=== PATIENT | female | born 1955 | race Caucasian/White ===

== ENCOUNTER 2024-08-06 23:14 | Emergency (ER) | payer OTHER, SELFPAY ==
[2024-08-06 23:17] VITALS: BP 176/83; PULSE 74; RESP 18; TEMP 36.8; O2SAT 97; BMI 34.9
--- NOTE | 2024-08-07 00:14 | CT_ITS ---
EXAM: CT brain without IV contrast CLINICAL HISTORY: Dizziness, headache, hypertension. COMPARISON: None. TECHNIQUE: Multiple, axial CT images of the brain are obtained without intravenous contrast. Coronal and sagittal 2D reformatted images are provided for better evaluation. Dose reduction technique was used. FINDINGS: There is prominence of the ventricles and sulci indicative of atrophy. No midline shift, mass effect, or extra-axial fluid collections are identified. No acute intracranial hemorrhage, mass, or acute territorial infarction is present per CT criteria. Walters-white junction is preserved. There is flattening of the pituitary gland relating to an empty sella. Calvarium is intact. Visualized paranasal sinuses demonstrates fluid levels in the bilateral maxillary sinuses. There is mucosal thickening of the bilateral ethmoid and frontal sinuses. CT/Brain/Head without Contrast IMPRESSION: 1. No acute intracranial process. If clinical concern for acute ischemia, MRI is a more sensitive exam. 2. Atrophy. 3. Paranasal sinusitis. 4. Empty sella. Reading Location: [facility]
[2024-08-07] MEDS: Meclizine HCl 25 MG Tablet PO (00:32)
[2024-08-07 01:15] VITALS: BP 186/78; PULSE 73; RESP 18; O2SAT 98
--- NOTE | 2024-08-07 01:19 | EX.ED.DYSGE1 ---
HPI History of Present Illness Chief Complaint: Hypertension Informant: patient, family and EMS Narrative Narrative: 68-year-old female brought for high blood pressure. She and family state it goes up every time I lay down. With regards to symptoms, she basically has been having intermittent dizziness that feels like spinning every time she lays down for the past week. Sometimes she lays down and she has no symptoms and like tonight, 45 minutes later she was awakened suddenly by this sensation and she also mentions that she is having some ringing in her head, and does not think she is having ringing in her hearing or any other hearing disturbance. She denies any URI symptoms or facial pain or headache or loss of hearing or an earache. She denies any trouble walking. She states if she gets the symptoms while lying down and sits up, after couple of minutes the symptoms resolve with regards to the dizziness. However every time she feels this way she has been checking her blood pressure, and it has been high anywhere from the 160-180 range, systolic with diastolics as high as 104. She states she saw her doctor for all of this yesterday and was started on amlodipine 5 mg, which she took for the first time earlier today, as well as a prednisone taper and was referred to ENT, they have not called for an appointment yet. However tonight when she woke up feeling this way it was worse and they checked her blood pressure and it was in the 180s so they called EMS and came to the ER. She denies having any new symptoms; no chest discomfort, dyspnea even with exertion, orthopnea, changes in urine output, vision changes. PFSH PFSH no medical history Home Medications ?Medication ?Instructions ?Recorded ?Last Taken ?Type amlodipine 5 mg tablet 5 mg PO DAILY 08/06/24 Unknown History prednisone 5 mg tablet 5 mg PO DAILY 08/06/24 Unknown History vitamins A,C,F-snpw-hckfau 4,296 1 cap PO DAILY 08/06/24 Unknown History mcg-226 mg-90 mg capsule (PreserVision AREDS) Allergy/AdvReac Type Severity Reaction Status Date / Time No Known Allergies Allergy Verified 08/06/24 23:17 Surgical History Hx of cholecystectomy Hx of umbilical hernia repair Social History Smoking Status: Never smoker ROS ROS ED Constitutional Constitutional ED: Denies chills or fever(s) Eyes Eyes: Denies change in vision or diplopia ENT ENT ED: Reports as per HPI and dizziness; Denies abnormal hearing, ear pain, rhinorrhea or sore throat Cardiovascular Cardiovascular: Denies chest pain or palpitations Respiratory/Chest Respiratory/Chest: Denies cough or dyspnea Gastrointestinal Gastrointestinal: Denies abdominal pain, diarrhea, nausea or vomiting Genitourinary Genitourinary ED: Denies dysuria or hematuria Musculoskeletal Musculoskeletal: Denies back pain or neck pain Integumentary Denies abscess or rash Neurologic Neurologic: Denies headache(s), paresthesias or weakness EXAM Physical Exam Const Vital Signs: 08/06/24 23:17 08/06/24 23:21 08/07/24 01:15 Temperature 98.3 F Temperature Source Oral Pulse Rate 74 73 Respiratory Rate 18 18 Respiratory Effort Normal Non-Labored Respiratory Pattern Normal Blood Pressure 176/83 H 186/78 H Blood Pressure Mean 114 114 Pulse Ox 97 98 Oxygen Delivery Method Room Air Room Air 08/07/24 01:44 Temperature 97.6 F L Temperature Source Pulse Rate 69 Respiratory Rate 18 Respiratory Effort Respiratory Pattern Blood Pressure 186/78 H Blood Pressure Mean 114 Pulse Ox 98 Oxygen Delivery Method Positive well nourished and well developed General Appearance ED: well developed and NAD HEENT Reports moist mucous membranes normocephalic and atraumatic Eyes PERRL and EOMs intact bilaterally Eyes Narrative: No pathologic nystagmus Neck full ROM and supple Resp normal respiratory effort and clear to auscultation bilaterally Cardio regular rate, regular rhythm and no murmurs GI non-tender and non-distended Auscultation: normoactive bowel sounds Palpation: soft Back/Spine no CVA tenderness General Back: other FROM Extremity normal to inspection General Extremety ED: Negative for edema, pulses abnormal or tenderness General Extremity: Negative for edema or pulses abnormal Neuro oriented x3, CN's II-XII intact bilaterally and no sensory deficits noted Neuro Narrative: Sobia-Hallpike positive to the right, negative to the left normal speech no aphasia or dysarthria. No facial droop. No focal neurologic deficits. No dysmetria. Normal [id number]-kp-hopc and [id number]-ll-wuud bilaterally. Sensorium / Orientation: awake and alert Motor Exam: strength 5/5 throughout Psych mental status grossly normal Skin no rashes or lesions noted and no wounds MDM MDM MDM Narrative Medical decision making narrative: As I discussed with the patient and family, I do not think she is having symptoms from her high blood pressure. She is having no symptoms while here at rest, so I did a Sobia-Hallpike maneuver and she was positive on the right and asymptomatic with the maneuver to the left. The only only between high blood pressure this high and vertiginous symptoms could be a stroke and if she has been having symptoms for a week although triggered with certain positions and less likely to be stroke, it would show up on CT so I performed a brain CT without contrast, and on my interpretation it shows no acute infarct, radiology was in agreement adding that she has paranasal sinusitis. I reexamined her, she has no ethmoid or paranasal tenderness or congestion so this is probably chronic and not in need of acute antibiotics. We observed her blood pressure here, mostly stayed in the 170s and she is asymptomatic with that. She was given meclizine, but did not want to lay down to see if it helped at all. This is not likely to help significantly if she has BPPV. Since she was prescribed prednisone, I suspect her PCP was considering vestibular neuronitis, and the patient states he referred her to ENT, which I agree with. At this point, we do not need to do anything with her blood pressure emergently, she was advised that the amlodipine is going to take some time to make big difference in her numbers, but she should continue taking it as prescribed and follow-up as advised. Radiography Diagnostic Testing: Clinical Impression(s) from Imaging Studies Brain CT 08/07/24 00:14 IMPRESSION: 1. No acute intracranial process. If clinical concern for acute ischemia, MRI is a more sensitive exam. 2. Atrophy. 3. Paranasal sinusitis. 4. Empty sella. Reading Location: [facility] Discharge Plan Triage Chief Complaint: Hypertension ED Provider: Man Temple Dx/Rx/DC Orders Clinical Impression: Benign paroxysmal positional vertigo of right ear, Accelerated hypertension Instructions: Hypertension Dc, BPPV Prescriptions: No Action prednisone 5 mg tablet 5 mg PO DAILY Rx Instructions: TAPER PACK amlodipine 5 mg tablet 5 mg PO DAILY PreserVision AREDS 4,296 mcg-226 mg-90 mg capsule 1 cap PO DAILY Primary Care Provider: Luis Antonio Santos Referrals: Luis Antonio Santos DO [Primary Care Provider] - Constantine Zarco MD [Med Staff - Active Staff] - Print Language: Yoruba Disposition Disposition: Home, Self Care
[2024-08-07 01:44] VITALS: BP 186/78; PULSE 69; RESP 18; TEMP 36.4; O2SAT 98
== END 2024-08-07 01:50 | disposition home or self-care (01) ==
PROVIDERS: Emergency Provider Emergency Medicine; PCP Family Medicine; Visit Provider Emergency Medicine
DX: I10 Essential (primary) hypertension (principal); Z90.49 Acquired absence of other specified parts of digestive tract; R42 Dizziness and giddiness
CPT/HCPCS: 70450; 99284